=== PATIENT | female | born 1995 | race Caucasian/White ===

== ENCOUNTER 2024-06-11 11:31 | Observation (INO) | payer MEDICAID, SELFPAY ==
[2024-06-11 11:37] VITALS: BMI 27.1
[2024-06-11 11:42] VITALS: BP 112/77; PULSE 114
[2024-06-11 11:47] VITALS: BP 112/77; PULSE 110; RESP 16; TEMP 36.1
[2024-06-11 11:48] VITALS: TEMP 36.1
== END 2024-06-11 13:30 | disposition home or self-care (01) ==
PROVIDERS: Admitting Provider Nurse Practitioner Women's Health; Visit Provider Nurse Practitioner Women's Health
DX: O47.1 False labor at or after 37 completed weeks of gestation (principal); Z3A.39 39 weeks gestation of pregnancy
CPT/HCPCS: 59899

== ENCOUNTER 2024-06-21 02:54 | Inpatient (IN) | payer MEDICAID, SELFPAY ==
[2024-06-21] VITALS (227 sets, daily range): BP systolic 88–147; BP diastolic 53–94; PULSE 71–122; RESP 16–99; TEMP 2.7–38; O2SAT 80–100; BMI 28.0
[2024-06-21 04:55] LABS: Amphetamine/Metham Scrn,Ur OB Negative (Negative); Benzoylecgonine Screen, Ur OB Negative (Negative); Opiate Screen,Urine OB Negative (Negative); THC Screen,Urine OB Negative (Negative)
[2024-06-21] MEDS: RINGERS LACTATED 1000 ML 1,000 ML 125 ML IV ×2 (05:12→06:24)
[2024-06-21 05:58] LABS: Basophils # (Auto) 0.1 Thou/mm3 (0.0-0.2); Basophils % (Auto) 0 % (0-2.5); Eosinophils # (Auto) 0.3 Thou/mm3 (0.0-0.5); Eosinophils % (Auto) 2 % (0-10); Hemoglobin 10.4 g/dL (12.0-16.0); Immature Granulocytes % (Auto) 0 % (0-0); Immature Granulocytes Auto 0.05 Thou/mm3 (0.00-0.00); Lymphocytes # (Auto) 2.9 Thou/mm3 (1.0-4.8); Lymphocytes % (Auto) 18 % (10-50); Mean Corpuscular HGB Conc 33.5 g/dl (31.0-37.0); Mean Corpuscular Hemoglobin 25.8 pg (25.0-35.0); Mean Corpuscular Volume 77 fL (80-100); Monocytes # (Auto) 0.9 Thou/mm3 (0.0-0.8); Monocytes % (Auto) 6 % (0-12); Neutrophils # (Auto) 12.1 Thou/mm3 (1.8-7.7); Neutrophils % (Auto) 74 % (37-80); Nucleated Red Blood Cell % 0 /100 WBC (0); Platelet Count 198 Thou/mm3 (140-440); RDW Standard Deviation 39.5 fL (36.4-46.3); Red Blood Count 4.03 Miln/mm3 (4.00-5.20); White Blood Count 16.4 Thou/mm3 (3.6-11.0)
--- NOTE | 2024-06-21 06:45 | ESHP_ITS ---
Documentation for date of: 06/21/24 OB Labor/Induct. HPI History of Present Illness Chief complaint: 29 y/o 40w 6d presents to L&D in labor at 4 cm : 3 Para: 1 Term pregnancies: 1 pregnancies: 0 Living children: 1 History of Abortions: Spontaneous and Elective: 1 History of Vaginal deliveries: 1 History of sections: No History of : No ADENIKE: 06/18/24 Gestational Age (weeks): 40 Gestational Age (days): 6 History of present illness: 29 y/o 40w 6d presents to L&D in labor at 4 cm shayna 2-4 minutes, vertex, membranes intact. GBS is neg. Pt's has been complicated by GDM- diet control, well controlled and anemia on iron. In early pt did test + for THC but she stopped after she learned she was . Pt has a hx of nvdx1 and 1 SAB and last baby was 8.5 lbs, EFW of this baby is 3800g History of Present Dating criteria: based on 1st trimester US only Adequate Care: Yes Ultrasounds: normal 1st trimester US and normal mid trimester US Obstetrical complications: gestational diabetes (Diet) and other (Anemia) Labs Maternal Blood Type: O Pos Labs: Positive: Rubella Titre, Negative: RPR, Hepatitis B, HIV, Chlamydia, Gonorrhea and Group Beta Strep and Unknown: Herpes Type 1, Herpes Type 2 and Covid-19 Review of Systems Review of Systems Systems Reviewed: All systems reviewed, normal except as documented Past Medical History Surgical History SURGICAL: Negative Section Meds Home Medications and Allergies Home Medications ?Medication ?Instructions ?Recorded ?Confirmed ?Type vit no.95-ferrous 1 tab PO QDAY 10/0806/21/24 History fumarate 28 mg-folic acid 800 mcg tablet () Allergies Allergy/AdvReac Type Severity Reaction Status Date / Time No Known Allergies Allergy Verified 06/21/24 03:04 OB Exam Physical Exam Vital signs: Temp Pulse Resp BP Pulse Ox O2 Del Method 36.8 F L 77 18 113/69 100 Room Air 06/21/24 05:15 06/21/24 06:44 06/21/24 05:15 06/21/24 06:44 06/21/24 06:42 06/21/24 05:15 Constitutional Constitutional: mild distress (Secondary to painful contractions) Routine HEENT Exam Head: Present normocephalic and atraumatic Eye: Present EOMI, PERRL and normal accommodation ENT: Present mucous membranes moist Routine Neck Exam Neck: Present full ROM Routine Respiratory Exam Respiratory: Absent respiratory distress Routine Cardiovascular Exam Cardiovascular: Present RRR Routine Abdominal Exam Abdominal: Present soft Comments: Gravid uterus Estimated weight is 3800g Routine Exam External: Present normal urethra appearance; Absent lesions Detailed Labor and Delivery Exam Dilation (cm): 4 Effacement (%): 80 Cervix position: posterior station: -2 Consistency: soft Presentation: Vertex Membranes: intact Baseline heart rate: 120 monitor accelerations: 15x15 monitor decelerations: None marine oil terminal superintendent variability: Moderate (11-25) Contraction frequency (min): 3-4 Contraction intensity: Moderate Routine Extremities Exam Extremities: Present full ROM Routine Back/Spine/Pelvis Exam Back/Spine: Present full ROM Routine Skin Exam Skin: Present intact, dry and warm Routine Neurological Exam Neurological: Present alert, oriented X3 and CN II-XII intact Routine Psychiatric Exam Psychiatric: Present normal affect and normal thought process OB Results Labs 06/21/24 04:00 Labs: Short CBC 06/21/24 Range/Units 04:00 WBC 16.4 H (3.6-11.0) Thou/mm3 Hgb 10.4 L (12.0-16.0) g/dL Hct 31.0 L (36.0-46.0) % Plt Count 198 (140-440) Thou/mm3 OB Assessment & Plan Assessment and Plan (1) Normal labor: Status: Acute (2) Post term over 40 weeks: Status: Acute (3) Diet controlled gestational diabetes mellitus (GDM): Status: Acute (4) Anemia affecting in third trimester: Status: Acute Additional Plan Induction method: none Plan: augmentation, anticipate NVD and consult prn Additional Plan Comment: Routine admit orders Continuous EFM Consult anesthesia for an epidural (3) Diet controlled gestational diabetes mellitus (GDM) Qualifiers: Trimester: third trimester Qualified Code(s): O24.410 - Gestational diabetes mellitus in , diet controlled
[2024-06-21 07:11] LABS: Syphilis Nonreactive (Nonreactive)
[2024-06-21] MEDS: BENZO/LANO/ALOE (Dermoplast) 60 GM CAN 1 SPRAY TOP (12:23)
[2024-06-21] MEDS: MINERAL OIL 30 ML UDC TOP (12:23)
[2024-06-21] MEDS: IBUPROFEN TAB 400 MG TABLET 800 MG PO (12:23)
[2024-06-21] MEDS: OXYTOCIN in NS 20 units 20 UNIT/1,000 ML BAG 125 UNIT IV ×2 (12:24→13:53)
--- NOTE | 2024-06-21 12:25 | ESDS_ITS ---
DS: Providers Provider Date of admission: 06/21/24 03:46 Primary care physician: Physician No Primary/Family Admitting Provider: Chante Jacome MD Attending Provider on Admission: Smith Robin MD Attending Provider on DC: Smith Robin MD Discharging Provider: Smith Robin MD DS: Diagnosis Discharge Diagnosis (1) (normal spontaneous vaginal delivery): Status: Acute Problem List Completed Was Problem List Reviewed/Reconciled?: Yes Summary/Hosp Course Brief History: 29 y/o 40w 6d presents to L&D in labor at 4 cm shayna 2-4 minutes, vertex, membranes intact. GBS is neg. Pt's has been complicated by GDM- diet control, well controlled and anemia on iron. In early pt did test + for THC but she stopped after she learned she was . Pt has a hx of nvdx1 and 1 SAB and last baby was 8.5 lbs, EFW of this baby is 3800g Peripartum Data Delivery Method: Normal Vaginal Delivery Laceration Description: yes and see Delivery Summary complications: none [place] 1: Gender: Female (9'9 ) Disposition of : home Time Spent with Patient Time attestation: Total time spent providing and/or coordinating discharge services: Exam Vital Signs Temp Pulse Resp BP Pulse Ox O2 Del Method 97.5 F 100 16 125/62 99 Room Air 06/21/24 07:46 06/21/24 12:13 06/21/24 07:46 06/21/24 12:13 06/21/24 12:22 06/21/24 07:46 Discharge Plan Plan Patient Disposition: HOME (Self Care) Patient condition on transfer: Stable Prescriptions/Referrals Prescriptions/Med Rec: New ibuprofen 600 mg tablet 600 mg PO Q6H PRN (Reason: pain) Qty: 30 0RF amoxicillin-pot clavulanate 875-125 mg tablet 1 tab PO BID Qty: 10 0RF No Action PNV cmb#95-ferrous fumarate-FA [] 28 mg iron- 800 mcg tablet 1 tab PO QDAY Patient Comments: take 1 tablet by mouth once daily Referrals: No Primary/Family,Physician [Primary Care Provider] - Patient/Caregiver Discharge Instructions Discharge Activity: activity as tolerated Other Discharge Activity Instructions:: Follow up office [facility] in 6 weeks. Print Language: Kyrgyz Stand Alone Forms: Martina Award Info., Patient Portal Info Letter Planned Discharge Date 06/22/24
--- NOTE | 2024-06-21 12:44 | PC.NURSE ---
Geiling DO called and updated pt expelled large softball size blood clot. Orders received for 800mg Cytotec CO and methergine. Type and cross for [address] 2nd IV
[2024-06-21] MEDS: MISOPROSTOL 200 mCg TABLET 800 MCG PR (12:48)
[2024-06-21] MEDS: METHYLERGONOVINE INJ 0.2 MG/ML VIAL IM (12:49)
[2024-06-21] MEDS: TRANEXAMIC ACID 1,000 MG IVPB 1,000 MG/100 ML BAG 200 MG IV (13:22)
--- NOTE | 2024-06-21 13:40 | PC.NURSE ---
Sharda MALDONADO notified TLaura Wolf RN performed manual clot extraction, no more clots have been expelled at this time. TXA has been given. Orders recieved to give hemabate and lomotil
[2024-06-21] MEDS: DIPHENOXYLATE/ATROP SULF 1 TAB PO (13:53)
[2024-06-21] MEDS: CARBOPROST TROMETH INJ 250 MCG/ML VIAL IM (13:53)
--- NOTE | 2024-06-21 14:06 | PD.LDDELS ---
Data ([place]) Data Hx Section: No : 3 Term: 1 : 0 Livin Abortions: Spontaneous & Theraputic: 1 Delivery Data (Recinos) Labor Data Initiation of labor: Spontaneous Induction/Augmentation Agent: None ROM date: 06/21/24 ROM time: 10:10 Amniotic membrane rupture type: Spontaneous Amniotic fluid description: Light Meconium Delivery Data EDC: 06/15/24 EDC calculated by:: LMP/early US confirmation Onset of labor date: 06/21/24 Onset of labor time: 06:15 Complete dilation date: 06/21/24 Complete dilation time: 11:35 [place] delivery date: 06/21/24 [place] delivery time: 12:10 Gestational age (weeks): 40 Gestational age (days): 6 Placenta delivery date: 06/21/24 Placenta delivery time: 12:16 Stage 1 total time: Labor - Stage 1 Duration 5 hours and 20 minutes Delivered by: Smith Robin Delivery nurse: Paulino Thompson RN [facility] nurse: ANURAG Cox Organizational Development Consultant at delivery: No Support person(s) at delivery: FOB Other staff at delivery: ANURAG Ley, layout artistrotary dump operator Method Delivery: Vaginal Presentation: Vertex Position: OA Anesthesia Type Primary Anesthesia: Epidural Placenta Placenta Delivery: Spontaneous Placenta Cultures Obtained: No Placenta Sent for Examination: No Cord Sample: Cord Blood Obtained Lacerations #1: Perineal: 2nd degree Perineal repair Sutures used for repair: 3.0 Chromic EBL Estimated blood loss (ml): 450 Additional Procedures None Complications Complications: Uterine atony Fever [place] Data (Recinos) [place] Data 's gender: Female Identification band number: [id number] weight (gms): 9 lb 8.913 oz Weight (pounds): 9 lbs and 8.9 ozs 1 minute: 9 5 minutes: 9
--- NOTE | 2024-06-21 14:07 | PC.NURSE ---
06/21/2024 1400: Called DO Stanford to notify of pts. temp 100.2 F & 100.4 F. DO will put in orders for antibiotics and labs.
[2024-06-21] MEDS: AMPICILLIN/SULBAC INJ 3 GM in SODIUM CHLORIDE 0.9% (POP) 100 ML IV ×2 (14:44→20:46)
[2024-06-21] MEDS: HYDROcodone/APAP 5/325 TABLET 1 TAB PO (15:19)
[2024-06-21 15:23] LABS: Anion Gap 8 (7-16); BUN/Creatinine Ratio 12 Ratio (12-20); Blood Urea Nitrogen 6 mg/dL (9-23); Calcium 8.2 mg/dL (8.3-10.6); Carbon Dioxide 20.6 mMol/L (20.0-31.0); Chloride 108 mMol/L (98-107); Creatinine (Component) 0.5 mg/dL (0.6-1.3); Estimated Creatinine Clearance 183.6 mL/min (>60); Glucose 88 mg/dL (74-106); Osmolality,Calculated 270 (275-295); Potassium 3.5 mMol/L (3.4-5.1); Sodium 137 mMol/L (136-145); eGFR > 60 See Note
[2024-06-21 18:20] LABS: Basophils # (Auto) 0.1 Thou/mm3 (0.0-0.2); Basophils % (Auto) 0 % (0-2.5); Eosinophils # (Auto) 0.1 Thou/mm3 (0.0-0.5); Eosinophils % (Auto) 0 % (0-10); Hematocrit 31.8 % (36.0-46.0); Hemoglobin 10.6 g/dL (12.0-16.0); Immature Granulocytes % (Auto) 1 % (0-0); Immature Granulocytes Auto 0.18 Thou/mm3 (0.00-0.00); Lymphocytes # (Auto) 2.1 Thou/mm3 (1.0-4.8); Lymphocytes % (Auto) 8 % (10-50); Mean Corpuscular HGB Conc 33.3 g/dl (31.0-37.0); Mean Corpuscular Volume 78 fL (80-100); Monocytes # (Auto) 1.3 Thou/mm3 (0.0-0.8); Monocytes % (Auto) 5 % (0-12); Neutrophils # (Auto) 22.8 Thou/mm3 (1.8-7.7); Neutrophils % (Auto) 86 % (37-80); Nucleated Red Blood Cell % 0 /100 WBC (0); Platelet Count 189 Thou/mm3 (140-440); RDW Standard Deviation 40.3 fL (36.4-46.3); Red Blood Count 4.08 Miln/mm3 (4.00-5.20); White Blood Count 26.5 Thou/mm3 (3.6-11.0)
[2024-06-22] VITALS: PULSE 99; RESP 16; TEMP 37.1; O2SAT 98
[2024-06-22] MEDS: IBUPROFEN TAB 400 MG TABLET 800 MG PO ×2 (00:02→19:03)
[2024-06-22] MEDS: AMPICILLIN/SULBAC INJ 3 GM in SODIUM CHLORIDE 0.9% (POP) 100 ML IV ×4 (02:09→19:47)
[2024-06-22 04:00] VITALS: PULSE 78; RESP 17; TEMP 36.7; O2SAT 99
[2024-06-22 05:54] LABS: Basophils # (Auto) 0.1 Thou/mm3 (0.0-0.2); Basophils % (Auto) 0 % (0-2.5); Eosinophils # (Auto) 0.3 Thou/mm3 (0.0-0.5); Eosinophils % (Auto) 2 % (0-10); Hematocrit 23.7 % (36.0-46.0); Immature Granulocytes % (Auto) 1 % (0-0); Immature Granulocytes Auto 0.14 Thou/mm3 (0.00-0.00); Lymphocytes # (Auto) 3.2 Thou/mm3 (1.0-4.8); Lymphocytes % (Auto) 16 % (10-50); Mean Corpuscular HGB Conc 34.2 g/dl (31.0-37.0); Mean Corpuscular Hemoglobin 26.3 pg (25.0-35.0); Mean Corpuscular Volume 77 fL (80-100); Monocytes # (Auto) 1.3 Thou/mm3 (0.0-0.8); Monocytes % (Auto) 7 % (0-12); Neutrophils # (Auto) 14.7 Thou/mm3 (1.8-7.7); Neutrophils % (Auto) 75 % (37-80); Nucleated Red Blood Cell % 0 /100 WBC (0); Platelet Count 156 Thou/mm3 (140-440); RDW Standard Deviation 40.2 fL (36.4-46.3); Red Blood Count 3.08 Miln/mm3 (4.00-5.20); White Blood Count 19.6 Thou/mm3 (3.6-11.0)
[2024-06-22 06:09] LABS: Hemoglobin 8.1 g/dL (12.0-16.0)
[2024-06-22 06:55] LABS: Gentamicin, Random < 0.5 mcg/mL (4.0-10.0)
[2024-06-22 08:00] VITALS: PULSE 90; RESP 18; TEMP 37.2; O2SAT 99
[2024-06-22] MEDS: HYDROcodone/APAP 5/325 TABLET 1 TAB PO (09:06)
--- NOTE | 2024-06-22 09:57 | PC.NURSE ---
IV leaking, tender, and painful. removed, catheter intact, pressure applied 1 min. pt tolerated well.
--- NOTE | 2024-06-22 10:10 | PC.NURSE ---
Patient reports she passed a big blood clot, Dr. Slaughter made aware, orderes received, read back, and carried out.
[2024-06-22 14:00] VITALS: PULSE 69; RESP 16; TEMP 36.6; O2SAT 98
--- NOTE | 2024-06-22 15:42 | PC.SS ---
DIRECTOR EXTERNAL COMMUNICATIONS conducted bedside contact with the patient to address nursing referral indicating patient possessed past history of THC use.? Toxicology report negative upon admission.? DIRECTOR EXTERNAL COMMUNICATIONS discussed basis of referral. ?Patient confirmed past use of THC approximately 1 year ago.? Patient has ceased use.? Patient states not planning to continue recreational use of THC.? is the patient?s 2nd child.? Infant was delivered naturally.? Patient plans of .? OB services provided by Bernie Jimenez.? Patient confirms consistency with OB appointments.? Patient is aligned with SNAP and WIC.? Patient is not receiving TANF.? Patient denies history of alcohol/drug abuse.? Patient denies CWS intervention.? Patient denies episodes of domestic violence.? Patient reports history of depression and anxiety.? Patient utilizing counseling services via [facility].? Patient is not prescribed psychotropic medication.? Patient has access to appropriate supplies and equipment; to include a car seat.? FOB, Sai Fan; will provide transportation upon discharge.? Patient describes possessing support system consisting of mother, sister and FOB.? DIRECTOR EXTERNAL COMMUNICATIONS provided the patient with community resources to include [facility] and Warm Line.? No further intervention required at this time, social science manager will be available to address any further concerns.? DIRECTOR EXTERNAL COMMUNICATIONS updated bedside nurse.?
--- NOTE | 2024-06-22 17:19 | ESPR_ITS ---
Subjective Subjective Interval history: Patient is a 29-year-old G3P now 2011 day #1 status post vaginal delivery with a second-degree perineal laceration,the baby weighed [address] Robin delivered the baby for [facility]. The patient had a hemorrhage and a temp of 100.4F. She was started on Her hemoglobin was 10.4 it is 8.1 today. She will stay on antibiotics utill day #2 until afebrile 24 hours. Will recheck a CBC in the morning. This morning she was resting comfortably and the father the baby is at bedside. She was breast-feeding her . Exam Vital Signs Temp Pulse Resp BP Pulse Ox O2 Del Method 97.8 F 69 16 127/83 98 Room Air 06/22/24 14:00 06/22/24 14:00 06/22/24 14:00 06/21/24 15:21 06/22/24 14:00 06/22/24 14:00 Narrative Exam Fundus firm nontender umbilicus. Extremities show no significant edema or erythema. Objective Labs 06/22/24 05:25 06/21/24 14:47 Labs: Laboratory Results - last 24 hr 06/21/24 06/22/24 17:56 05:25 WBC 26.5 H D 19.6 H D RBC 4.08 3.08 L Hgb 10.6 L 8.1 L D Hct 31.8 L 23.7 L MCV 78 L 77 L MCH 26.0 26.3 MCHC 33.3 34.2 RDW Std Deviation 40.3 40.2 Plt Count 189 156 D Neut % (Auto) 86 H 75 Lymph % (Auto) 8 L 16 [place] % (Auto) 5 7 Eos % (Auto) 0 2 Baso % (Auto) 0 0 Neut # (Auto) 22.8 H 14.7 H Lymph # (Auto) 2.1 3.2 [place] # (Auto) 1.3 H 1.3 H Eos # (Auto) 0.1 0.3 Baso # (Auto) 0.1 0.1 Immature Gran # (Auto) 0.18 H 0.14 H Absolute Nucleated RBC 0.00 0.00 Immature Gran % 1 H 1 H Nucleated RBC % 0 0 Random Gentamicin < 0.5 L Assessment & Plan Problem List (1) atony of uterus with hemorrhage: Problem details: Patient status post medications for hemorrhage. Bleeding is minimal now. Recheck CBC in the morning Status: Acute (2) Endometritis following delivery: Status: Acute Assessment and plan: Antibiotics till 24 hours afebrile (3) Term delivered: Status: Acute Assessment Comment Assessment comment: Discharge home in the morning if stable. Time Spent With Patient Time: Total time spent is greater than 50% in coordination of care (as documented) at patient's floor/unit and/or counseling patient: Time with patient: less than 15 minutes
[2024-06-22 19:45] VITALS: BP 117/74; PULSE 88; RESP 16; TEMP 37; O2SAT 99
[2024-06-23] MEDS: AMPICILLIN/SULBAC INJ 3 GM in SODIUM CHLORIDE 0.9% (POP) 100 ML IV (02:48)
[2024-06-23 03:52] VITALS: BP 113/77; PULSE 80; RESP 18; TEMP 36.8; O2SAT 98
[2024-06-23 07:01] LABS: Basophils # (Auto) 0.1 Thou/mm3 (0.0-0.2); Basophils % (Auto) 1 % (0-2.5); Eosinophils # (Auto) 0.4 Thou/mm3 (0.0-0.5); Eosinophils % (Auto) 3 % (0-10); Hematocrit 26.2 % (36.0-46.0); Immature Granulocytes % (Auto) 1 % (0-0); Immature Granulocytes Auto 0.12 Thou/mm3 (0.00-0.00); Lymphocytes # (Auto) 2.7 Thou/mm3 (1.0-4.8); Lymphocytes % (Auto) 19 % (10-50); Mean Corpuscular HGB Conc 32.1 g/dl (31.0-37.0); Mean Corpuscular Hemoglobin 25.5 pg (25.0-35.0); Mean Corpuscular Volume 80 fL (80-100); Monocytes % (Auto) 7 % (0-12); Neutrophils # (Auto) 9.9 Thou/mm3 (1.8-7.7); Neutrophils % (Auto) 69 % (37-80); Nucleated Red Blood Cell % 0 /100 WBC (0); Platelet Count 176 Thou/mm3 (140-440); RDW Standard Deviation 41.7 fL (36.4-46.3); Red Blood Count 3.29 Miln/mm3 (4.00-5.20); White Blood Count 14.3 Thou/mm3 (3.6-11.0)
[2024-06-23 07:10] LABS: Hemoglobin 8.4 g/dL (12.0-16.0)
--- NOTE | 2024-06-23 07:42 | PD.LDPPPRG ---
Subjective Subjective Interval history: Delivery type: Patient doing well this morning. No acute complaints. Ambulating, tolerating p.o. and voiding without difficulty. HTN/Pre-Eclampsia screen: No chest pain, shortness of breath, headache, visual changes, epigastric or right upper quadrant pain. Breast-feeding, lochia diminishing. Bowel: Flatus+/ BM+ Exam Vital Signs Temp Pulse Resp BP Pulse Ox O2 Del Method 98.3 F 80 18 113/77 98 Room Air 06/23/24 03:52 06/23/24 03:52 06/23/24 03:52 06/23/24 03:52 06/23/24 03:52 06/23/24 03:52 Constitutional Constitutional: no acute distress Routine HEENT Exam Head: Present normocephalic and atraumatic Eye: Present EOMI and PERRL ENT: Present mucous membranes moist Routine Neck Exam Neck: Present supple and trachea midline Routine Respiratory Exam Respiratory: Present chest non-tender, lungs clear, normal breath sounds and no resp distress Routine Cardiovascular Exam Cardiovascular: Present RRR Routine Abdominal Exam Abdominal: Present soft and normoactive bowel sounds Routine Extremities Exam Extremities: Present full ROM Routine Skin Exam Skin: Present intact, dry and warm Routine Neurological Exam Neurological: Present alert, oriented X3 and CN II-XII intact Routine Psychiatric Exam Psychiatric: Present normal affect and normal thought process Objective Labs 06/23/24 06:15 06/21/24 14:47 Labs: Laboratory Results - last 24 hr 06/23/24 06:15 WBC 14.3 H D RBC 3.29 L Hgb 8.4 L Hct 26.2 L MCV 80 MCH 25.5 MCHC 32.1 RDW Std Deviation 41.7 Plt Count 176 Neut % (Auto) 69 Lymph % (Auto) 19 [place] % (Auto) 7 Eos % (Auto) 3 Baso % (Auto) 1 Neut # (Auto) 9.9 H Lymph # (Auto) 2.7 [place] # (Auto) 1.0 H Eos # (Auto) 0.4 Baso # (Auto) 0.1 Immature Gran # (Auto) 0.12 H Absolute Nucleated RBC 0.00 Immature Gran % 1 H Nucleated RBC % 0 Assessment & Plan Problem List (1) atony of uterus with hemorrhage: Status: Acute Assessment and plan: PPD/POD#2 1. Continue routine care 2. Transition to PO meds. 3. Encourage to ambulate/ breast-feed 4. Anticipate discharge home today. (2) Endometritis following delivery: Status: Acute (3) Term delivered: Status: Acute Time Spent With Patient Time: Total time spent is greater than 50% in coordination of care (as documented) at patient's floor/unit and/or counseling patient: Time with patient: less than 15 minutes
--- NOTE | 2024-06-23 07:43 | PD.LDDS ---
DS: Providers Provider Date of admission: 06/21/24 03:46 Primary care physician: Physician No Primary/Family Admitting Provider: Chante Jacome MD Attending Provider on Admission: Raheem Mason MD Consults: 06/21/24 13:30 Referral Routine Comment: Attending Provider on DC: Raheem Mason MD Discharging Provider: Raheem Mason MD DS: Diagnosis Discharge Diagnosis (1) Term delivered: Status: Acute (2) Endometritis following delivery: Status: Acute (3) atony of uterus with hemorrhage: Status: Acute (4) macrosomia, delivered, current hospitalization: Status: Acute Problem List Completed Was Problem List Reviewed/Reconciled?: Yes Summary/Hosp Course Brief History: 29 y/o 40w 6d presents to L&D in labor at 4 cm shayna 2-4 minutes, vertex, membranes intact. GBS is neg. Pt's has been complicated by GDM- diet control, well controlled and anemia on iron. In early pt did test + for THC but she stopped after she learned she was . Pt has a hx of nvdx1 and 1 SAB and last baby was 8.5 lbs, EFW of this baby is 3800g Peripartum Data Delivery Method: Normal Vaginal Delivery Time Spent with Patient Time attestation: Total time spent providing and/or coordinating discharge services: Exam Vital Signs Temp Pulse Resp BP Pulse Ox O2 Del Method 98.3 F 80 18 113/77 98 Room Air 06/23/24 03:52 06/23/24 03:52 06/23/24 03:52 06/23/24 03:52 06/23/24 03:52 06/23/24 03:52 Discharge Plan Plan Patient Disposition: HOME (Self Care) Patient condition on transfer: Stable Prescriptions/Referrals Prescriptions/Med Rec: New ibuprofen 600 mg tablet 600 mg PO Q6H PRN (Reason: pain) Qty: 30 0RF amoxicillin-pot clavulanate 875-125 mg tablet 1 tab PO BID Qty: 10 0RF docusate sodium [Stool Softener] 100 mg capsule 100 mg PO QDAY 30 Days Qty: 30 1RF No Action PNV cmb#95-ferrous fumarate-FA [] 28 mg iron- 800 mcg tablet 1 tab PO QDAY Patient Comments: take 1 tablet by mouth once daily Referrals: Chante Jacome MD [Physician] - No Primary/Family,Physician [Primary Care Provider] - Patient/Caregiver Discharge Instructions Discharge Activity: activity as tolerated Other Discharge Activity Instructions:: Follow up office [facility] in 6 weeks. Education Materials: After a Vaginal , After Delivery [place] Concerns, Anemia During , Feel Healthy After Print Language: Dive[place] Stand Alone Forms: Martina Award Info., Patient Portal Info Letter Discharge Order Discharge Orders: Discharge (Routine); Ordered 06/23/24 Ordered By: Raheem Mason Planned Discharge Date 06/23/24
[2024-06-23] MEDS: IBUPROFEN TAB 400 MG TABLET 800 MG PO (07:58)
[2024-06-23 08:00] VITALS: BP 123/70; PULSE 91; RESP 18; TEMP 36.8; O2SAT 98
== END 2024-06-23 10:09 | disposition home or self-care (01) | DRG 560 ==
LOC: S4SX 14:57 → S4NX 15:47
PROVIDERS: Nurse Practitioner Women's Health; Obstetrics & Gynecology; Specialist; Admitting Provider Student in an Organized Health Care Education/Training Program; Visit Provider Obstetrics & Gynecology
DX: O48.0 Post-term pregnancy (principal); Z37.0 Single live birth; Z3A.40 40 weeks gestation of pregnancy; O36.63X0 Maternal care for excessive fetal growth, third trimester, not applicable or unspecified; O70.1 Second degree perineal laceration during delivery; O77.0 Labor and delivery complicated by meconium in amniotic fluid
CPT/HCPCS: 36415; 59025; 59409; 80048; 80170; 80307; 85025; 86780; 86850; 86900; 86901; 86923; 94762; J0295; J1580; J2210; J2590; J2795; J3010; J3490; J7050; J7120; S0191; A9270